=== PATIENT | male | born 1960 | race Caucasian/White ===

== ENCOUNTER 2023-01-27 07:02 | Observation (INO) | payer OTHER, SELFPAY ==
[2023-01-27] VITALS (19 sets, daily range): BP systolic 128–158; BP diastolic 76–105; PULSE 80–104; RESP 9–103; TEMP 36.4–37.1; O2SAT 95–100; BMI 25.2
--- NOTE | ~2023-01-27 | CT_ITS ---
CT of the Abdomen and Pelvis: Indication: Abdominal pain Technique: 2.5 mm axial scans were obtained through the abdomen and pelvis following intravenous adm inistration of 100 cc of Omnipaque 350. Dose reduction technique was used on this scan by utilizing a utomated exposure control and iterative reconstruction technique. The dose-length product (DLP) was 5 17.44 mGy-cm. Findings: Scans through the lung bases are unremarkable. The liver, spleen, pancreas, gallbladder, adrenals and right kidney are within normal limits. 6 mm no nobstructing left renal stone present. There are atherosclerotic calcifications of the aorta. No lym phadenopathy. There is wall thickening and inflammatory change of the distal sigmoid colon, most consistent with ac [place] diverticulitis. There is a pericolonic versus intramural abscess along the left side of the dista l sigmoid colon measuring 2.7 x 2.1 cm in diameter, with surrounding inflammatory change. No bowel ob struction. Images through the pelvis were performed. There is mild wall thickening of the urinary bladder. Prost ate gland and seminal vesicles are unremarkable. No ascites. Bilateral L5 pars interarticularis defects are present, with 9 mm anterolisthesis of L5 over S1. Ther e is prominent Schmorl's node and/or compression deformity at the inferior endplate of L1. Impression: Sigmoid diverticulitis with 2.7 x 2.1 cm intramural versus pericolonic abscess. Mild wall thickening of the urinary bladder, likely reactive due to the adjacent diverticulitis. Christopher elate for UTI. 6 mm nonobstructing left renal stone. Chronic osseous findings, as detailed above. Reviewed, dictated and finalized at [facility]. ENFORCEMENT DIRECTOR Impression: Sigmoid diverticulitis with 2.7 x 2.1 cm intramural versus pericolonic abscess. Mild wall thickening of the urinary bladder, likely reactive due to the adjacen t diverticulitis. Correlate for UTI. 6 mm nonobstructing left renal stone. Chronic osseous findings, as detailed above.
--- NOTE | 2023-01-27 07:29 | ED.ABDPAIN ---
HPI - Abdominal Pain General Chief Complaint: Abdominal Pain Stated Complaint: abd pain Time Seen by Provider: 01/27/23 07:15 History of Present Illness HPI narrative: Patient is a 62-year-old male who presents ER with abdominal pain. Began yesterday at 1 AM. Sharp. Lower abdomen but radiates all over. Worse with movements. Makes him feel like he has to have a bowel movement. He did take a stool softener that is causing diarrhea. No urinary symptoms. Related Data Home Medications Medication Instructions Recorded Confirmed No Home Medications 01/27/23 01/27/23 Allergies Allergy/AdvReac Type Severity Reaction Status Date / Time No Known Allergies Allergy Verified 01/27/23 07:30 Review of Systems Review of Systems: All systems reviewed & are unremarkable except as noted in HPI and below Constitutional: Constitutional: Denies chills and Denies fever(s) Comments: Sweats ENT: Denies nasal congestion and Denies sore throat Respiratory: Respiratory: Reports no additional respiratory complaints Gastrointestinal: Gastrointestinal: Reports abdominal pain, Reports diarrhea, Denies nausea and Denies vomiting Genitourinary: Genitourinary: Reports no additional male genitourinary complaints [facility] Past Medical History Medical History Tobacco abuse Surgical History Surgical History History of thoracotomy Left lower lobe excision Family History Family History (Updated 01/27/23 @ 10:36 by Alissa Wagner RN) Father COPD (chronic obstructive pulmonary disease) with emphysema Other No pertinent family history Social History Social History (Updated 01/27/23 @ 09:17 by ROSALIE Muro) Smoking packs per day: 1 Smoking cigarettes per day: 20.0 Smoking status: Current every day smoker Alcohol intake: never Substance use: never Lack of Transportation: No Lack of Food: Never True Current Housing: I Have Housing Concerned About Future Housing: No Difficulty Paying Gas/Electric Bills: No Difficulty Paying for Meds: No Currently Unemployed: No Education: High School Diploma/GED Difficulty w/ Childcare or Family Care: No Living arrangements: with family 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 HEAD: Normocephalic, atraumatic. EYES: PERRL and EOMI. ENT: Mucous membranes moist. CHEST: Clear to auscultation. No respiratory distress. HEART: Regular rate and rhythm. Normal peripheral pulses. ABDOMEN: Soft, tender to palpation bilateral lower quadrants but guarding in the right lower quadrant, nondistended. EXTREMITIES: Normal range of motion. No edema. SKIN: Warm, dry, no rash. NEURO: Alert and oriented x3. PSYCH: Normal mood and affect. Course Course Emergency Course: Discussed case with general surgery who will admit the patient primarily. Patient aware of diagnosis and treatment plan. Started on IV antibiotics. Vital Signs Vital signs: Vital Signs Temperature 98.3 F 01/27/23 07:04 Pulse Rate 101 H 01/27/23 07:04 Respiratory Rate 103 H 01/27/23 07:04 Blood Pressure 158/89 H 01/27/23 07:04 Pulse Oximetry 100 01/27/23 07:04 Oxygen Delivery Room Air 01/27/23 07:04 Temperature 98.8 F 01/27/23 12:57 Pulse Rate 80 01/27/23 12:57 Respiratory Rate 18 01/27/23 12:57 Blood Pressure 145/91 H 01/27/23 12:57 Pulse Oximetry 98 01/27/23 12:57 Oxygen Delivery Room Air 01/27/23 07:04 MDM - Abdominal Pain Lab Data 01/27/23 07:21 01/27/23 07:21 Labs: Lab Results 01/27/23 01/27/23 Range/Units 07:21 08:08 WBC 19.1 H (4.5-10.0) K/mm3 RBC 5.51 (4.6-
[2023-01-27] MEDS: MORPHINE SULFATE (*CRX) 4 MG/ML INJ IV PUSH ×3 (07:32→16:41)
[2023-01-27 07:41] LABS: Alanine Aminotransferase 22 U/L (6-50); Albumin Level 4.7 g/dL (3.5-5.1); Alkaline Phosphatase 82 U/L (38-126); Anion Gap 9 mmol/L (8-16); Aspartate Amino Transferase 23 U/L (17-59); Bilirubin,Total 1.1 mg/dL (0.2-1.3); Blood Urea Nitrogen 13 mg/dL (9-20); Calcium 9.8 mg/dL (8.4-10.2); Carbon Dioxide 23 mmol/L (22-30); Chloride 103 mmol/L (98-107); Estimated Glomerular Filt Rate > 60; Glucose 118 mg/dL (65-110); Lipase 45 U/L (23-300); Sodium 135 mmol/L (137-145)
[2023-01-27 08:13] LABS: Basophils Absolute Auto 0.1 K/mm3 (0.0-0.1); Basophils Percent Auto 0.3 % (0.2-1.2); Eosinophils Absolute Auto 0.1 K/mm3 (0-0.3); Eosinophils Percent Auto 0.3 % (0-4.4); Hemoglobin 16.8 g/dL (14.0-18.0); Immature Granulocyte Absolute 0.11 K/mm3 (0.00-0.031); Immature Granulocyte Percent A 0.6 % (0-0.5); Lymphocytes Absolute Auto 2.01 K/mm3 (0.9-3.2); Lymphocytes Percent Auto 10.5 % (18.3-44.2); Mean Corpuscular HGB Conc 32.3 g/dl (32-36); Mean Corpuscular Hemoglobin 30.5 pg (26-34); Mean Corpuscular Volume 94.4 fl (80-100); Mean Platelet Volume 10.1 fl (7.4-10.4); Monocytes Absolute Auto 0.9 K/mm3 (0.1-0.6); Monocytes Percent Auto 4.8 % (2.6-8.5); Neutrophils Percent Auto 83.5 % (45.5-73.1); Platelet Count Result 338 k/mm3 (150-375); Red Blood Count 5.51 M/mm3 (4.6-6.20); Red Cell Distribution Width 13.7 % (11.5-14.5); White Blood Count 19.1 K/mm3 (4.5-10.0)
[2023-01-27 08:32] LABS: Appearance Urine Clear (Clear); Bacteria Urine None Seen /hpf; Bilirubin Urine Negative (Negative); Color Urine Dark Yellow (Yellow); Glucose Urine UA Negative (Negative); Ketones Urine Trace mg/dL (Negative); Leukocyte Esterase Ur Negative LEU/UL (Negative); Nitrate Urine Negative (Negative); Non Pathogenic Casts 0-2; Protein Urine 1+ mg/dL (Negative); RBC Urine 0-2 /hpf (0-2); Squamous Epithelial Cell Urine Occasional /hpf (Few); WBC Urine 0-5 /hpf; pH Urine 5.5 (5.0-9.0)
[2023-01-27] MEDS: PIPERACILLN/TAZ 3.375GM/NS50ML 3.375 GM/50 ML BAG IVPB ×4 (08:54→23:04)
[2023-01-27 08:55] LABS: Blood Urine Trace (Negative)
[2023-01-27 08:56] LABS: Specific Grav Ur 1.052 (1.001-1.035)
[2023-01-27 08:57] LABS: Add Urine Microscopic? YES
--- NOTE | 2023-01-27 09:09 | PM.IMHP ---
H&P: HPI History of Present Illness Date/Time: 01/27/23 09:09 Chief Complaint: Abdominal pain Narrative: This is a 62-year-old man who presented to the ER with complaints of lower abdominal pain. He woke up two nights ago around 1:00 am with lower abdominal pain. No associated symptoms. Pain progressively worsened throughout the day and brought him into the ER in the evening. Labs showed a WBC count of 19,100. CT scan of the abdomen and pelvis showed sigmoid diverticulitis with a 2.7 cm x 2.1 cm intramural versus pericolonic abscess, and mild wall thickening of the urinary bladder that is likely reactive due to adjacent diverticulitis. UA negative for UTI. Our service was contacted by the ED physician. He is now seen in the ER. He was given 1 dose of IV Zosyn. He denies a history of diverticulitis. No previous colonoscopies. 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 Gender identity (if verbalized by the patient): Male Meds Home Medications and Allergies Allergies Allergy/AdvReac Type Severity Reaction Status Date / Time No Known Allergies Allergy Verified 01/27/23 07:30 Vital Signs Vital Signs - 24 hr 01/27/23 07:04 01/27/23 07:21 Temperature 98.3 F Pulse Rate 101 H 97 Respiratory Rate 103 H 11 L Blood Pressure 158/89 H 141/76 H Pulse Oximetry 100 98 Oxygen Delivery Room Air Exam Const: General: comfortable, no acute distress and awake Nutritional Appearance: average body habitus Orientation/consciousness: patient oriented x3 HENMT: Head: normocephalic and atraumatic Ears: hearing grossly normal bilaterally Eyes: General: appearance normal, both eyes and all related structures Pupils: Equal, round and reactive pupils present Neck: Neck: normal visual inspection and full ROM Resp: Effort & Inspection: no respiratory distress Auscultation: clear to auscultation bilaterally Cardio: Rate: regular rate Rhythm: regular rhythm Heart sounds: S1 normal heart sound present and S2 normal heart sound present GI: Inspection: non-distended and no scars (no obvious large scars) GI Palp: Yes Soft to palpation, Yes Tenderness to palpation present (GI) (tenderness in the lower abdomen, left > right), No Guarding due to palpation present (GI), Yes No hepatosplenomegaly present, No Palpable mass present (no palpable mass) and No Rebound tenderness present Percussion: Yes normal to percussion Auscultation: normal bowel sounds Skin: General skin exam: normal color Rashes: no rashes Neuro: General: moves all extremities and no focal motor deficits Speech: normal speech Motor exam (neuro): 5/5 motor strength present throughout Extrem: General: normal to inspection and no edema Psych: Mental Status: mental status grossly normal Affect: normal affect Attitude: cooperative Insight: Good insight present (Psych) Judgement: Good judgement present (Psych) H&P: Results Labs Labs: Short CBC 01/27/23 Range/Units 07:21 WBC 19.1 H (4.5-10.0) K/mm3 Hgb 16.8 (14.0-18.0) g/dL Hct 52.0 (42.0-52.0) % Plt Count 338 (150-375) k/mm3 [facility] 01/27/23 07:21 Sodium 135 L Potassium 4.0 Chloride 1
[2023-01-27] MEDS: NICOTINE (*PBKC) 14 MG PATCH 1 PATCH TRANSDERM (09:16)
--- NOTE | 2023-01-27 10:32 | ADMGEN ---
This patient, Gutierrez Dunn, was admitted to Medical Room 348-01. Patient/family oriented to hospital policies and general routines including ID bracelet, bed and alarms, visiting hours, pain management, procedures, bathroom and other care routines, personal items, smoking policy, room service/diet, and visiting hours. Information on how to activate the Rapid Response Team has been discussed. Patient/Family are encouraged to report perceived risks to care and to ask questions if they do not understand what they are told or what they should do.
[2023-01-27] MEDS: DEXTROSE 5%/LACTATED RINGERS 1,000 ML 125 ML IV CONT ×2 (12:10→23:34)
[2023-01-27] MEDS: metroNIDAZOLE 500 MG/ISO 100ML 500 MG/100 ML BAG 100 MG IVPB ×2 (12:11→22:02)
[2023-01-27] MEDS: HYDROcodone/acetaminophen (*CRX) 5-325 MG TABLET 1 TAB PO ×2 (19:46→23:35)
[2023-01-27] MEDS: IBUPROFEN IV 800 MG/200 ML 800 MG/200 ML BAG 400 MG IVPB (21:29)
[2023-01-28] MEDS: IBUPROFEN IV 800 MG/200 ML 800 MG/200 ML BAG 400 MG IVPB ×3 (05:05→21:36)
[2023-01-28 05:18] VITALS: BP 156/82; PULSE 71; RESP 18; TEMP 36.6; O2SAT 96
[2023-01-28 05:19] LABS: Basophils Percent Auto 0.3 % (0.2-1.2); Eosinophils Absolute Auto 0.2 K/mm3 (0-0.3); Eosinophils Percent Auto 1.6 % (0-4.4); Hematocrit 44.6 % (42.0-52.0); Hemoglobin 14.6 g/dL (14.0-18.0); Immature Granulocyte Absolute 0.04 K/mm3 (0.00-0.031); Immature Granulocyte Percent A 0.4 % (0-0.5); Lymphocytes Absolute Auto 1.37 K/mm3 (0.9-3.2); Lymphocytes Percent Auto 13.8 % (18.3-44.2); Mean Corpuscular HGB Conc 32.7 g/dl (32-36); Mean Corpuscular Hemoglobin 30.8 pg (26-34); Mean Corpuscular Volume 94.1 fl (80-100); Mean Platelet Volume 9.6 fl (7.4-10.4); Monocytes Absolute Auto 0.7 K/mm3 (0.1-0.6); Monocytes Percent Auto 6.9 % (2.6-8.5); Neutrophils Absolute Auto 7.6 K/mm3 (1.3-6.7); Platelet Count Result 256 k/mm3 (150-375); Red Blood Count 4.74 M/mm3 (4.6-6.20); Red Cell Distribution Width 13.5 % (11.5-14.5); White Blood Count 9.9 K/mm3 (4.5-10.0)
[2023-01-28 05:26] LABS: Anion Gap 7 mmol/L (8-16); Blood Urea Nitrogen 12 mg/dL (9-20); Calcium 8.8 mg/dL (8.4-10.2); Carbon Dioxide 23 mmol/L (22-30); Chloride 105 mmol/L (98-107); Estimated CRCL calculation 94 ml/min; Estimated Glomerular Filt Rate > 60; Glucose 120 mg/dL (65-110); Potassium 3.7 mmol/L (3.4-5.0); Sodium 135 mmol/L (137-145)
[2023-01-28] MEDS: PIPERACILLN/TAZ 3.375GM/NS50ML 3.375 GM/50 ML BAG IVPB ×4 (05:37→23:10)
[2023-01-28] MEDS: metroNIDAZOLE 500 MG/ISO 100ML 500 MG/100 ML BAG 100 MG IVPB ×3 (06:01→22:10)
[2023-01-28] MEDS: NICOTINE (*PBKC) 14 MG PATCH 1 PATCH TRANSDERM (08:37)
[2023-01-28] MEDS: DEXTROSE 5%/LACTATED RINGERS 1,000 ML 125 ML IV CONT (08:41)
--- NOTE | 2023-01-28 11:59 | PM.PNGS ---
Progress Note: A&P Assessment and Plan (1) Diverticulitis of intestine with abscess: Code(s): K57.80 - Diverticulitis of intestine, part unspecified, with perforation and abscess without bleeding Status: Acute Assessment and Plan: First episode of diverticulitis with CT evidence of sigmoid diverticulitis with a small 2.7 cm pericolonic or intramural abscess. Abdominal pain and tenderness better this morning. Will start him on a clear liquid diet. Continue IV Zosyn and Flagyl Repeat labs tomorrow Plan I have discussed the patient's case and plan of care with Dr. Freeman. Subjective Subjective Date/Time Seen: 01/28/23 11:59 Patient reports: flatus Interval history: Patient doing well. Abdominal pain and tenderness much improved. He is not currently having any abdominal pain at this time. His pain improved last night after having the [place] and scheduled IV Ibuprofen. No nausea or vomiting. Exam Const: General: comfortable and no acute distress Orientation/consciousness: patient oriented x3 GI: Inspection: non-distended GI Palp: Yes Soft to palpation, No Tenderness to palpation present (GI), No Guarding due to palpation present (GI) and No Rebound tenderness present Auscultation: normal bowel sounds Objective Data Vital Signs Vital Signs: Vital Signs - 24 hr 01/27/23 12:57 01/27/23 19:50 01/27/23 21:22 Temperature 98.8 F 97.5 F L Pulse Rate 80 80 80 Respiratory Rate 18 18 18 Blood Pressure 145/91 H 148/88 H Pulse Oximetry 98 98 95 Oxygen Delivery Room Air 01/28/23 05:18 01/27/23 23:37 01/28/23 08:00 Temperature 97.8 F Pulse Rate 71 Respiratory Rate 18 Blood Pressure 156/82 H Pulse Oximetry 96 96 Oxygen Delivery Room Air Room Air Intake/Output Intake/Output: Intake & Output 01/25/23 01/26/23 01/27/23 01/28/23 23:59 23:59 23:59 23:59 Intake Total 1600 1350 Balance 1600 1350 Meds/Results Medications: Active Medications Generic Name Dose Route Start Last Admin Trade Name Freq PRN Reason Stop Dose Admin Acetaminophen 650 mg 01/27/23 09:29 Acetaminophen 325 Mg Tablet PO Q4H PRN Mild Pain (1-3) or Fever Hydrocodone Bitart/Acetaminophen 1 tab 01/27/23 09:29 01/27/23 23:35 Hydrocodone/Acetaminophen (*Crx) 5-325 Mg Tablet PO 1 tab Q4H PRN Administration Pain Rated 4-6 Hydromorphone HCl 1 mg 01/27/23 21:00 Hydromorphone Hcl Inj (*Crx) 1 Mg/Ml Syr IV PUSH Q3H PRN Pain Rated 7-10 Metronidazole 500 mg in 100 mls @ 100 mls/hr 01/27/23 12:00 01/28/23 06:01 Flagyl 500 Mg/Iso Soln 100 Ml IVPB 100 mls/hr Q8HR JOÃO Administration Dextrose/Lactated Ringer's 1,000 mls @ 125 mls/hr 01/27/23 11:20 01/28/23 08:41 Dextrose 5%/Lactated Ringers IV CONT 125 mls/hr .Q8H JOÃO Administration Piperacillin/Tazobactam/Dextrose 3.375 gm in 50 mls @ 100 mls/hr 01/27/23 13:00 01/28/23 06:05 Zosyn 3.375 Gm/Ns 50 Ml IVPB Infused Q6HR JOÃO Infusion Ibuprofen 800 mg in 200 mls @ 400 mls/hr 01/27/23 22:00 01/28/23 05:35 Caldolor 800 Mg/200 Ml IVPB Infused Q8HR JOÃO Infusion Nicotine 1 patch 01/27/23 09:00 01/28/23 08:37 Nicotine (*Pbkc) 14 Mg Patch TRANSDERM 1 patch QAM JOÃO Administration Ondansetron HCl 4 mg 01/27/23 09:29 Ondansetron Inj 4 Mg/2 Ml Vial IV PUSH Q4H PRN Nausea Radiology Results: ITS Impressions Abdomen/Pelvis CT 01/27/23 08:02 Impression: Sigmoid diverticulitis with 2.7 x 2.1 cm intramural versus pericolonic abscess. Mild wall thickening of the urinary bladder, likely reactive due to the adjacent diverticulitis. Correlate for UTI. 6 mm nonobstructing left renal stone. Chronic osseous findings, as detailed above. Labs Labs: Laboratory Results - last 24 hr 01/28/23 05:05 WBC 9.9 RBC 4.74 Hgb 14.6 Hct 44.6 MCV 94.1 MCH 30.8 MCHC 32.7 RDW 13.5 Plt Count 256 MPV 9.6 Immature Gran % (Auto) 0.4
[2023-01-28 14:00] VITALS: BP 159/91; PULSE 67; RESP 16; TEMP 36.6; O2SAT 99
[2023-01-28 20:00] VITALS: PULSE 67; RESP 16; O2SAT 99
[2023-01-28 21:22] VITALS: BP 159/87; PULSE 74; RESP 18; TEMP 36.3; O2SAT 99
[2023-01-28] MEDS: DEXTROSE 5%/LACTATED RINGERS 1,000 ML 70 ML IV CONT (23:52)
[2023-01-29] MEDS: IBUPROFEN IV 800 MG/200 ML 800 MG/200 ML BAG 400 MG IVPB (05:31)
[2023-01-29 05:35] VITALS: BP 154/93; PULSE 63; RESP 18; TEMP 36.5; O2SAT 97
[2023-01-29 05:50] LABS: Mean Corpuscular HGB Conc 33.3 g/dl (32-36); Mean Corpuscular Hemoglobin 30.9 pg (26-34); Mean Corpuscular Volume 92.8 fl (80-100); Mean Platelet Volume 9.4 fl (7.4-10.4); Platelet Count Result 308 k/mm3 (150-375); Red Blood Count 4.85 M/mm3 (4.6-6.20); Red Cell Distribution Width 13.2 % (11.5-14.5); White Blood Count 9.1 K/mm3 (4.5-10.0)
[2023-01-29 06:01] LABS: Anion Gap 5 mmol/L (8-16); Blood Urea Nitrogen 6 mg/dL (9-20); Calcium 9.1 mg/dL (8.4-10.2); Carbon Dioxide 28 mmol/L (22-30); Chloride 103 mmol/L (98-107); Estimated CRCL calculation 94 ml/min; Estimated Glomerular Filt Rate > 60; Glucose 107 mg/dL (65-110); Potassium 3.7 mmol/L (3.4-5.0); Sodium 136 mmol/L (137-145)
[2023-01-29] MEDS: metroNIDAZOLE 500 MG/ISO 100ML 500 MG/100 ML BAG 100 MG IVPB ×2 (06:06→13:05)
[2023-01-29] MEDS: PIPERACILLN/TAZ 3.375GM/NS50ML 3.375 GM/50 ML BAG IVPB ×2 (06:06→13:03)
[2023-01-29] MEDS: NICOTINE (*PBKC) 14 MG PATCH 1 PATCH TRANSDERM (08:18)
--- NOTE | 2023-01-29 15:08 | PM.DS ---
DS: Admitting Diagnosis Discharge Date January 29, 2023 Admitting Diagnosis Acute with sigmoid diverticulitis with small pelvic abscess DS: Discharge Diagnosis Discharge Diagnosis (1) Diverticulitis of intestine with abscess: Code(s): K57.80 - Diverticulitis of intestine, part unspecified, with perforation and abscess without bleeding Status: Acute Assessment and Plan: Patient resolved acute diverticulitis non operative management. He will finish a course of oral antibiotics at home. He will need a get a colonoscopy done about 4 to 6 weeks. Low-fiber diet for 2 weeks and then switch to high-fiber diet. DS: Summary Hospital Course Reason for hospitalization: Acute sigmoid diverticulitis with small pelvic abscess Hospital Course: Patient came [facility] on January 28, 2023 where he was complaining of about a 2 day history of worsening lower abdominal pain. Workup in the emergency room showed an elevated white blood count [address] a [address] scan abdomen pelvis showed acute sigmoid diverticulitis with a small pelvic abscess. No free air was noted. He was admitted to the hospital to the floor and kept NPO except for ice chips. He was given IV fluids and started on Zosyn and Flagyl for IV antibiotics. Pain was managed with Dilaudid. The next day his white blood cell count actually decreased down to normal levels. His pain was much improved and minimal. He was advanced to clear liquid diet which he tolerated well and advanced to full liquid diet later in the day. The next day his white blood count was repeated again was normal. He was afebrile. He was then advanced to a low-fiber diet without any difficulty. He had a loose bowel movement which was nonbloody. He was essentially pain free and was discharged home on hospital day 2 to continue a course of oral antibiotics at home. He was instructed to follow-up with primary care physician. Since this was his 1st episode of diverticulitis which resolved fairly quickly I would not recommend elective sigmoid colon resection unless he had further episodes of diverticulitis that were complicated. He states he has a managing consultant in mind to get a colonoscopy done and will contact Dr. Nicholas who was in the [facility] area to get a colonoscopy performed in 4 to 6 weeks. No need to follow with Dr. Freeman. Status at Discharge Functional status at discharge: independent ambulation Overall status at discharge: patient is back to baseline Time Spent with Patient Time attestation: Total time spent providing and/or coordinating discharge services: Time spent: Less than 30 minutes Exam GI: Other: Abdomen is soft and nondistended. No tenderness to palpation the left lower quadrant suprapubic area. No masses are appreciated . The exam is benign. DS: Data Data Completed and Pending Labs on day of discharge: Labs from last 24 hours 01/29/23 05:33 WBC 9.1 RBC 4.85 Hgb 15.0 Hct 45.0 MCV 92.8 MCH 30.9 MCHC 33.3 RDW 13.2 Plt Count 308 MPV 9.4 Sodium 136 L Potassium 3.7 Chloride 103 Carbon Dioxide 28 Anion Gap 5 L BUN 6 L D Creatinine 0.80 Estim Creat Clear Calc 94 Estimated GFR > 60 Glucose 107 Calcium 9.1 Discharge Plan Discharge Attending physician on discharge: Gilles Freeman Discharging Clinician: Gilles Freeman Anticipated Discharge Date/Time: 01/29/23 15:04 Patient Disposition: Home, Self-Care Activity: unlimited Diet: low fiber Discharge Instructions: Patient may be discharged home today. He is to have a low-fiber diet for 2 weeks and then switch to high-fiber diet. Take the oral antibiotics as prescribed until prescription runs out. Patient states that he has a managing consultant where he will get a follow-up colonoscopy performed. I recommended he get this colonoscopy done in about 4 to 6 weeks. He will not need to have any follow-up with me in the general surgery clinic un
== END 2023-01-29 15:35 | disposition home or self-care (01) ==
LOC: ANHED 07:40 → ANH3MED 10:18
PROVIDERS: Nurse Practitioner Family; Admitting Provider Surgery; Emergency Provider Emergency Medicine; Visit Provider Surgery
DX: K57.80 Diverticulitis of intestine, part unspecified, with perforation and abscess without bleeding (principal); N20.0 Calculus of kidney; D72.829 Elevated white blood cell count, unspecified; F17.210 Nicotine dependence, cigarettes, uncomplicated
CPT/HCPCS: 36415; 74177; 80048; 80053; 81001; 83690; 85025; 85027; 96361; 96365; 96366; 96367; 96375; 96376; 99285; A9270; G0378; J1741; J1836; J2270; J2543; J7121; Q9967

== ENCOUNTER 2023-05-03 05:43 | Emergency (ER) | payer OTHER, SELFPAY ==
[2023-05-03] VITALS (12 sets, daily range): BP systolic 138–165; BP diastolic 77–100; PULSE 70–90; RESP 15–21; TEMP 36.3–36.6; O2SAT 95–98
--- NOTE | ~2023-05-03 | XR_ITS ---
Clinical Indication: Shortness of breath PA and lateral views of the chest: Comparison: 01/13/2019 Findings: Small right pleural effusion is present. There is minimal bibasilar haziness. Cardiomedias tinal silhouette is within normal limits. Bones and soft tissues are unremarkable. Impression: Small right pleural effusion with probable minimal bibasilar pulmonary edema/atelectasis. Correlate c linically for infection. Reviewed, dictated and finalized at location [facility]. [employer] SERV[employer] Impression: Small right pleural effusion with probable minimal bibasilar pulmonary edema/at electasis. Correlate clinically for infection.
[2023-05-03 07:51] LABS: Basophils Percent Auto 0.3 % (0.2-1.2); Eosinophils Absolute Auto 0.2 K/mm3 (0-0.3); Eosinophils Percent Auto 1.2 % (0-4.4); Hematocrit 46.2 % (42.0-52.0); Hemoglobin 14.8 g/dL (14.0-18.0); Immature Granulocyte Absolute 0.21 K/mm3 (0.00-0.031); Immature Granulocyte Percent A 1.7 % (0-0.5); Lymphocytes Absolute Auto 2.01 K/mm3 (0.9-3.2); Lymphocytes Percent Auto 16.4 % (18.3-44.2); Mean Corpuscular Hemoglobin 30.2 pg (26-34); Mean Corpuscular Volume 94.3 fl (80-100); Mean Platelet Volume 8.5 fl (7.4-10.4); Monocytes Absolute Auto 0.8 K/mm3 (0.1-0.6); Monocytes Percent Auto 6.3 % (2.6-8.5); Neutrophils Absolute Auto 9.1 K/mm3 (1.3-6.7); Neutrophils Percent Auto 74.1 % (45.5-73.1); Platelet Count Result 536 k/mm3 (150-375); Red Cell Distribution Width 14.1 % (11.5-14.5); White Blood Count 12.3 K/mm3 (4.5-10.0)
[2023-05-03] MEDS: IPRATROPIUM 0.5 MG/ALBUTEROL SULFATE 2.5 MG AMPUL.NEB 3 ML INHALATION (08:03)
[2023-05-03 08:08] LABS: Alanine Aminotransferase 83 U/L (6-50); Albumin Level 3.5 g/dL (3.5-5.1); Alkaline Phosphatase 81 U/L (38-126); Anion Gap 5 mmol/L (8-16); Aspartate Amino Transferase 40 U/L (17-59); Bilirubin,Total 0.4 mg/dL (0.2-1.3); Blood Urea Nitrogen 12 mg/dL (9-20); Calcium 9.4 mg/dL (8.4-10.2); Carbon Dioxide 28 mmol/L (22-30); Chloride 102 mmol/L (98-107); Estimated CRCL calculation 103 ml/min; Estimated Glomerular Filt Rate > 60; Glucose 116 mg/dL (65-110); Sodium 135 mmol/L (137-145)
[2023-05-03 08:16] LABS: NT Pro B Type Natriuretic Pept 225 pg/mL (19.9-100)
--- NOTE | 2023-05-03 08:41 | ED.SOB ---
HPI - SOB/Dyspnea General Chief Complaint: Shortness of Breath/Dyspnea Stated Complaint: breathing issues , hx flu Time Seen by Provider: 05/03/23 07:00 History of Present Illness HPI Narrative: Patient is a 62-year-old male who presents ER with shortness of breath. Ongoing for 1 week. Initially diagnosed with influenza. 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 He has no chest pain or chest pressure. No diaphoresis. He does have persistent cough that has become less productive. 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 This raises his concern for today. Patient denies wheezing. He is still having a wet cough. He has no history of congestive heart failure and denies orthopnea. No lower extremity edema. Related Data Allergies Allergy/AdvReac Type Severity Reaction Status Date / Time No Known Allergies Allergy Verified 05/03/23 06:02 Review of Systems Review of Systems: All systems reviewed & are unremarkable except as noted in HPI and below Constitutional: Constitutional: Reports no additional constitutional complaints ENT: Reports system reviewed and no additional complaints, except as documented Cardiovascular: Cardiovascular: Reports no additional cardiovascular complaints Respiratory: Respiratory: Reports chest congestion, Reports cough, Reports dyspnea and Denies wheezing Gastrointestinal: Gastrointestinal: Reports no additional gastrointestinal complaints Genitourinary: Genitourinary: Reports no additional male genitourinary complaints PMFSH Past Medical History Medical History Tobacco abuse Surgical History Surgical History History of thoracotomy Left lower lobe excision Family History Family History (Updated 01/27/23 @ 10:36 by Alissa Wagner RN) Father COPD (chronic obstructive pulmonary disease) with emphysema Other No pertinent family history Social History Social History (Updated 01/27/23 @ 09:17 by ROSALIE Muro) Smoking packs per day: 1 Smoking cigarettes per day: 20.0 Smoking status: Current every day smoker Alcohol intake: never Substance use: never Lack of Transportation: No Lack of Food: Never True Current Housing: I Have Housing Concerned About Future Housing: No Difficulty Paying Gas/Electric Bills: No Difficulty Paying for Meds: No Currently Unemployed: No Education: High School Diploma/GED Difficulty w/ Childcare or Family Care: No Living arrangements: with family 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 HEAD: Normocephalic, atraumatic. ENT: Mucous membranes moist. NECK: Supple. CHEST: Bibasilar crackles and wheezing. No respiratory distress. HEART: Regular rate and rhythm. Normal peripheral pulses. ABDOMEN: Soft, nontender, nondistended. EXTREMITIES: Normal range of motion. No edema. SKIN: Warm, dry, no rash. NEURO: Alert and oriented x3. PSYCH: Normal mood and affect. Course Course Emergency Course: Lungs clear after nebulizer treatment. Given previous history of pneumonia after a viral infection necessitating lobectomy patient be started on oral antibiotic given some haziness on the imaging that could reflect infection. He will also be started on a steroid and albuterol. Vital Signs Vital signs: Vital Signs Temperature 97.3 F L 05/03/23 05:44 Pulse Rate 88 05/03/23 05:44 Respiratory Rate 20 05/03/23 05:44 Blood Pr
== END 2023-05-03 11:01 | disposition home or self-care (01) ==
PROVIDERS: Emergency Provider Emergency Medicine
DX: J18.9 Pneumonia, unspecified organism (principal); J40 Bronchitis, not specified as acute or chronic; F17.210 Nicotine dependence, cigarettes, uncomplicated
CPT/HCPCS: 36415; 71046; 80053; 83880; 85025; 94640; 99283